=== PATIENT | female | born 1945 | race Caucasian/White ===

== ENCOUNTER → 2016-10-27 | Outpatient (CLI) | payer MEDICARE ==
[~2016-10-27] MED LIST: ADVAIR 100/501 DISK IH; ADVAIR 500/501 DISK IH; ADVAIR HFA120 INHALA IH; ADVIL200 M1 PO; ALEVE220 M2 PO; AMBIEN10 MG PO; AMLODIPINE BESYL5 MG PO; ASPIRIN EC325 MG PO; Advair HFA 115/21 IH; Ambien PO; Ascorbic Acid,Ester- PO; CARAFATE1 GM PO; CEFTIN500 MG PO; CELECOXIB100 MG PO; CIPRO500 MG PO; COUMADIN1 MG PO; CYANOCOBAL1000 MCG/2 IM; Cozaar PO; DUONEB 2.5-0.5 M3 ML AEROSOL; Ditropan PO; Dulcolax PO; ENABLEX15 MG PO; FENTANYL1 EAC1 TD; Feosol PO; Folvite PO; GABAPENTIN400 MG PO; HYDROCODON-ACE1 EAC7 PO; IRON325 M1 PO; LANOXIN125 MCG PO; LIDOCAINE700 MG TD; LOPRESSOR25 MG PO; Lanoxin,Digitek PO; Lasix PO; METHOCARBAMOL500 MG PO; METOPROLOL SUCC25 MG PO; Miralax, Glycolax PO; NEURONTIN300 MG; NEURONTIN300 MG PO; NITROSTAT0.4 MG SL; NORCO 10/3251 TABLET PO; Neurontin PO; OMEPRAZOLE40 M1 PO; OXYBUTYNIN CHLOR5 MG PO; OxyCONTIN PO; PAROXETINE HCL20 MG PO; PAXIL20 MG PO; PENNSAID112 GM TP; PREDNISONE10 MG PO; PROAIR HFA8.5 GM IH; Paxil PO; Protonix PO; SPIRIVA1 INHALATI IH; Senokot S,Pericolace PO; TRAMADOL HCL50 MG PO; TYLENOL REGULA325 MG PO; Theragran PO; Tums,OsCal PO; VITAMIN D250000 UNIT PO; VITAMIN D50000 UNI4 PO; Vicodin,Norco 5/325 PO; Vitamin B-12 IM; Vitamin D, Drisdol PO; WELCHOL625 MG PO; XARELTO10 MG PO; ZANAFLEX2 MG PO; ZOLPIDEM TARTRA10 MG PO; celeBREX PO; predniSONE PO
== END | disposition home or self-care (01) ==
LOC: CDC
DX: Z01.810 Encounter for preprocedural cardiovascular examination (principal)
CPT/HCPCS: 93000

== ENCOUNTER 2016-12-14 12:35 | Inpatient (IN) | payer OTHER ==
[~2016-12-14] VITALS: Ht 162.6 cm; Wt 62.0 kg
[~2016-12-14 12:35] MED LIST changes: +NEURONTIN100 MG PO; +SPIRIVA RESPIMAT4 G1 IH
[2016-12-14] MEDS ORDERED: VALACYCLOVIR1000 MG PO (13:17)
[2016-12-14] MEDS ORDERED: CYCLOBENZAPRINE5 MG PO (13:18)
[2016-12-14] MEDS ORDERED: SERTRALINE HCL50 MG PO (13:19)
[2016-12-14] MEDS ORDERED: BENZONATATE100 MG PO (13:19)
[2016-12-14] MEDS ORDERED: DITROPAN5 MG PO (13:19)
[2016-12-14 14:04] LABS: HEMATOCRIT 37.4 % (36.0-46.0); MCH 30.2 PG (29.0-34.0); MCHC 32.4 G/DL (30.0-36.0); MCV 93.3 FL (83-99); MEAN PLAT.VOLUME 9.4 uM^3 (9.5-12.4); PLATELET COUNT 114 K/uL (156-360); RBC DIS.WIDTH-CV 15.9 % (11.8-14.6); RBC DIS.WIDTH-SD 53.8 % (39-53); RED BLOOD COUNT 4.01 M/uL (3.80-5.20); WHITE BLOOD COUNT 5.1 K/uL (4.1-10.2)
[2016-12-14 14:13] LABS: CHLORIDE 110 mEq/L (99-109); POTASSIUM 3.6 mEq/L (3.7-5.4); SODIUM 139 mEq/L (136-147)
[2016-12-14 14:15] LABS: GLUCOSE 119 mg/dL (70-99)
[2016-12-14 14:17] LABS: ANION GAP 9 MEQ/L (2-14)
[2016-12-14 14:19] LABS: GFR ESTIMATE (CALCULATED) 43 mL/min/
[2016-12-14 14:20] LABS: UREA NITROGEN (BUN) 24 mg/dL (9-23)
[2016-12-14 14:26] LABS: TROP-I INTERPRETATION POSITIVE; TROPONIN-I 1.84 ng/mL (0.0-0.30)
[2016-12-14 14:34] LABS: ABS NEUTROPHIL COUNT 3.9; BAND NEUTROPHILS 0.9 % (0-8.0); BASOPHILS 1.7 %; EOSINOPHIL ABS CT 0; INSTRUMENT ABS NEUTROPHIL CT 3.1 K/uL; LYMPHOCYTES 18.6 % (15.0-45.0); MYELOCYTES 0.9 %; SEG.NEUTROPHILS 76.1 % (46.0-76.0); SMUDGE CELLS 16.8
[2016-12-14 16:50] LABS: PROTHROMBIN TIME 10.5 (9.2-11.2); PTT 30.2 (25-32)
[2016-12-14] MEDS ORDERED: ADVAIR HFA120 INHALA IH (16:57)
[2016-12-14] MEDS ORDERED: VICODIN 5-3001 EACH PO (16:58)
[2016-12-14] MEDS ORDERED: NEURONTIN600 MG PO (16:59)
[2016-12-14 17:00] VITALS: BP 119/71
[2016-12-14] MEDS ORDERED: LIDOCAINE HCL35 GM TP (17:01)
[2016-12-14] MEDS ORDERED: ERGOCALCIF50000 UNIT PO (17:01)
[2016-12-14 17:19] LABS: HDL CHOLESTEROL 22 MG/DL (Desirable>=50); LDL CHOLESTEROL 83 mg/dL (Desirable<100); NON-HDL CHOLESTEROL 122 mg/dL (Desirable<160); TOTAL CHOLESTEROL 144 mg/dL (Desirable<200); TRIGLYCERIDES 195 MG/DL (Normal: <150)
[2016-12-14 19:20] VITALS: BP 106/60
[2016-12-15 00:20] VITALS: BP 116/58
[2016-12-15 01:32] LABS: TROP-I INTERPRETATION POSITIVE; TROPONIN-I 2.37 ng/mL (0.0-0.30)
[2016-12-15 04:30] VITALS: BP 102/64
[2016-12-15 06:23] LABS: HEMATOCRIT 34.6 % (36.0-46.0); MCH 30.3 PG (29.0-34.0); MCHC 31.5 G/DL (30.0-36.0); MCV 96.1 FL (83-99); MEAN PLAT.VOLUME 9.9 uM^3 (9.5-12.4); PLATELET COUNT 108 K/uL (156-360); RBC DIS.WIDTH-CV 16.1 % (11.8-14.6); WHITE BLOOD COUNT 4.6 K/uL (4.1-10.2)
[2016-12-15 06:56] LABS: TROP-I INTERPRETATION POSITIVE; TROPONIN-I 2.18 ng/mL (0.0-0.30)
[2016-12-15 07:01] LABS: Estimated Average Glucose 103 mg/dL (70-123); HEMOGLOBIN A1c (GLYCOHEMOGLOB) 5.2 % HGB (Below 5.7)
[2016-12-15 07:20] VITALS: BP 118/59
[2016-12-15 12:02] VITALS: BP 116/66
[2016-12-15 16:07] VITALS: BP 97/52
[2016-12-15 19:30] VITALS: BP 104/60
[2016-12-16 00:12] VITALS: BP 113/56
[2016-12-16 02:44] LABS: HEMATOCRIT 36.7 % (36.0-46.0); MCH 30.6 PG (29.0-34.0); MCHC 32.2 G/DL (30.0-36.0); MCV 95.1 FL (83-99); MEAN PLAT.VOLUME 9.7 uM^3 (9.5-12.4); PLATELET COUNT 123 K/uL (156-360); RBC DIS.WIDTH-CV 16.2 % (11.8-14.6); RBC DIS.WIDTH-SD 53.7 % (39-53); RED BLOOD COUNT 3.86 M/uL (3.80-5.20); WHITE BLOOD COUNT 4.7 K/uL (4.1-10.2)
[2016-12-16 03:16] LABS: CHLORIDE 113 mEq/L (99-109); SODIUM 142 mEq/L (136-147)
[2016-12-16 03:17] LABS: GLUCOSE 92 mg/dL (70-99)
[2016-12-16 03:19] LABS: ANION GAP 7 MEQ/L (2-14)
[2016-12-16 03:21] LABS: GFR ESTIMATE (CALCULATED) 36 mL/min/; POTASSIUM 4.4 mEq/L (3.7-5.4)
[2016-12-16 03:22] LABS: UREA NITROGEN (BUN) 25 mg/dL (9-23)
[2016-12-16 03:40] VITALS: BP 109/74
[2016-12-16 08:00] VITALS: BP 106/60
[2016-12-16 12:05] VITALS: BP 94/52
[2016-12-16 16:47] VITALS: BP 98/50
[2016-12-16 20:30] VITALS: BP 137/67
[2016-12-17 01:15] VITALS: BP 119/65
[2016-12-17 04:52] LABS: EOSINOPHIL (%) 1.7 % (0-5); EOSINOPHIL COUNT 0.1 K/uL (0-0.3); IMMATURE GRANULOCYTE (%) 0.7 % (0.0-0.7); INSTRUMENT ABS NEUTROPHIL CT 2.3 K/uL; LYMPHOCYTE COUNT 1.5 K/uL (1.0-2.8); MCH 30.6 PG (29.0-34.0); MCHC 31.5 G/DL (30.0-36.0); MCV 97.1 FL (83-99); MEAN PLAT.VOLUME 9.8 uM^3 (9.5-12.4); MONOCYTE (%) 6.9 % (3-12); MONOCYTE COUNT 0.3 K/uL (0-0.8); NEUTROPHIL (%) 55.6 % (45-76); NEUTROPHIL COUNT 2.3 K/uL (1.8-6.4); PLATELET COUNT 115 K/uL (156-360); RBC DIS.WIDTH-CV 16.3 % (11.8-14.6); RBC DIS.WIDTH-SD 55.8 % (39-53); WHITE BLOOD COUNT 4.2 K/uL (4.1-10.2)
[2016-12-17 05:02] LABS: CHLORIDE 115 mEq/L (99-109); POTASSIUM 4.2 mEq/L (3.7-5.4); SODIUM 142 mEq/L (136-147)
[2016-12-17 05:04] LABS: GLUCOSE 92 mg/dL (70-99)
[2016-12-17 05:05] VITALS: BP 116/63
[2016-12-17 05:05] LABS: ANION GAP 6 MEQ/L (2-14)
[2016-12-17 05:06] LABS: TOTAL BILIRUBIN 0.3 mg/dL (0.0-1.0)
[2016-12-17 05:08] LABS: ALKALINE PHOSPHATASE 78 IU/L (3-129); GFR ESTIMATE (CALCULATED) 39 mL/min/
[2016-12-17 05:09] LABS: UREA NITROGEN (BUN) 26 mg/dL (9-23)
[2016-12-17 14:54] VITALS: BP 170/70
[2016-12-17 18:00] VITALS: BP 115/55
[2016-12-17 20:00] VITALS: BP 158/72
== END 2016-12-17 21:50 | disposition short-term general hospital (02) | DRG 281 ==
LOC: EME 12:35 → EDOF 15:57 → 4EAST 15:57
PROVIDERS: Emergency Medicine; Internal Medicine; Internal Medicine Cardiovascular Disease; Nurse Practitioner Adult Health; Physician Assistant
DX: I21.4 Non-ST elevation (NSTEMI) myocardial infarction (principal); J44.9 Chronic obstructive pulmonary disease, unspecified; I27.2 Other secondary pulmonary hypertension; I25.10 Atherosclerotic heart disease of native coronary artery without angina pectoris; I65.29 Occlusion and stenosis of unspecified carotid artery; I50.30 Unspecified diastolic (congestive) heart failure; I10 Essential (primary) hypertension; S00.03XA Contusion of scalp, initial encounter; G89.29 Other chronic pain; F17.210 Nicotine dependence, cigarettes, uncomplicated; S80.211A Abrasion, right knee, initial encounter; R07.89 Other chest pain; I73.9 Peripheral vascular disease, unspecified; F32.9 Major depressive disorder, single episode, unspecified; D69.6 Thrombocytopenia, unspecified; I95.9 Hypotension, unspecified; D64.9 Anemia, unspecified; I07.1 Rheumatic tricuspid insufficiency; K21.9 Gastro-esophageal reflux disease without esophagitis; B00.89 Other herpesviral infection; Z87.442 Personal history of urinary calculi; I25.2 Old myocardial infarction; Z86.73 Personal history of transient ischemic attack (TIA), and cerebral infarction without residual deficits; Z90.49 Acquired absence of other specified parts of digestive tract; Z96.643 Presence of artificial hip joint, bilateral; Z96.653 Presence of artificial knee joint, bilateral
CPT/HCPCS: 70450; 71020; 71101; 80048; 80053; 80061; 82565; 83036; 83880; 84484; 84520; 85025; 85027; 85610; 85730; 93005; 93306; 94640; 94640 76; 94799; 99202; 99281; 99285; C1760; C1769; C1887; C1894; J1644; J2250; J2270; J3010; J7030; J7040

== ENCOUNTER 2017-01-24 11:55 | Emergency (ER) | payer OTHER ==
[~2017-01-24] VITALS: Ht 152.4 cm; Wt 54.2 kg
[~2017-01-24 11:55] MED LIST changes: +BENZONATATE100 MG PO; +CYCLOBENZAPRINE5 MG PO; +DITROPAN5 MG PO; +ERGOCALCIF50000 UNIT PO; +LIDOCAINE HCL35 GM TP; +NEURONTIN600 MG PO; +SERTRALINE HCL50 MG PO; +VALACYCLOVIR1000 MG PO; +VICODIN 5-3001 EACH PO
[2017-01-24] MEDS ORDERED: ATORVASTATIN CA40 MG PO (12:35)
[2017-01-24] MEDS ORDERED: AMOX TR-K CLV1 EAC3 PO (12:35)
[2017-01-24] MEDS ORDERED: CLOPIDOGREL75 MG PO (12:35)
[2017-01-24] MEDS ORDERED: LO-DOSE ASPIRIN81 M2 PO (12:36)
[2017-01-24] MEDS ORDERED: METOPROLOL SUCC25 MG PO (12:36)
[2017-01-24 12:42] LABS: EOSINOPHIL (%) 0.9 % (0-5); HEMATOCRIT 33.9 % (36.0-46.0); IMMATURE GRANULOCYTE (%) 0.3 % (0.0-0.7); INSTRUMENT ABS NEUTROPHIL CT 2.1 K/uL; LYMPHOCYTE COUNT 0.8 K/uL (1.0-2.8); MCH 31.6 PG (29.0-34.0); MCHC 33.6 G/DL (30.0-36.0); MCV 93.9 FL (83-99); MEAN PLAT.VOLUME 9.3 uM^3 (9.5-12.4); MONOCYTE (%) 9.9 % (3-12); MONOCYTE COUNT 0.3 K/uL (0-0.8); NEUTROPHIL (%) 63.8 % (45-76); NEUTROPHIL COUNT 2.1 K/uL (1.8-6.4); PLATELET COUNT 113 K/uL (156-360); RBC DIS.WIDTH-CV 14.4 % (11.8-14.6); RED BLOOD COUNT 3.61 M/uL (3.80-5.20); WHITE BLOOD COUNT 3.2 K/uL (4.1-10.2)
[2017-01-24 12:50] LABS: CHLORIDE 107 mEq/L (99-109); POTASSIUM 3.2 mEq/L (3.7-5.4); SODIUM 140 mEq/L (136-147)
[2017-01-24 12:52] LABS: GLUCOSE 118 mg/dL (70-99)
[2017-01-24 12:53] LABS: ANION GAP 9 MEQ/L (2-14)
[2017-01-24 12:54] LABS: TOTAL BILIRUBIN 0.7 mg/dL (0.0-1.0)
[2017-01-24 12:55] LABS: ALKALINE PHOSPHATASE 110 IU/L (3-129)
[2017-01-24 12:56] LABS: GFR ESTIMATE (CALCULATED) > 59 mL/min/
[2017-01-24 12:57] LABS: UREA NITROGEN (BUN) 13 mg/dL (9-23)
[2017-01-24 12:59] LABS: LIPASE 124 U/L (1.0-51.0)
[2017-01-24 13:08] LABS: TROP-I INTERPRETATION NEGATIVE; TROPONIN-I 0.01 ng/mL (0.0-0.30)
[2017-01-24] MEDS ORDERED: ZOFRAN ODT4 MG PO (18:17)
[2017-01-24 18:42] LABS: ADD MIUA? YES; BILIRUBIN NEGATIVE; BLOOD NEGATIVE; COLOR YELLOW ((YELLOW)); GLUCOSE (STRIP) NEGATIVE; KETONES NEGATIVE; LEUKOCYTES NEGATIVE; NITRITE NEGATIVE; PROTEIN (STRIP) 100; SPECIFIC GRAVITY 1.021 (1.000-1.030); UROBILINOGEN 0.2 MG/DL (0.2-1.0)
[2017-01-24 19:05] LABS: BACTERIA NONE SEEN /HPF; EPITHELIAL CELLS RARE /HPF; MUCUS TRACE /LPF; RED BLOOD CELLS 0-5 /HPF (0-5); UCUL ADDED? NO; WHITE BLOOD CELLS 0-5 /HPF (0-5)
[2017-01-24] MEDS ORDERED: VICODIN 5-3001 EACH PO (19:39)
[2017-01-24 19:56] VITALS: BP 150/88
== END 2017-01-24 21:18 | disposition home or self-care (01) ==
LOC: EME 11:55
PROVIDERS: Emergency Medicine
DX: R10.9 Unspecified abdominal pain (principal); G89.29 Other chronic pain; J44.9 Chronic obstructive pulmonary disease, unspecified; I10 Essential (primary) hypertension; Z87.442 Personal history of urinary calculi; I25.2 Old myocardial infarction; Z95.5 Presence of coronary angioplasty implant and graft; F17.200 Nicotine dependence, unspecified, uncomplicated
CPT/HCPCS: 74176; 80053; 81003; 83690; 84484; 85025; 93005; 99281; 99285; J2270; J2405; J7030

== ENCOUNTER 2017-01-26 13:12 | Inpatient (IN) | payer OTHER ==
[~2017-01-26] VITALS: Ht 162.6 cm; Wt 51.9 kg
[~2017-01-26 13:12] MED LIST changes: +AMOX TR-K CLV1 EAC3 PO; +ATORVASTATIN CA40 MG PO; +CLOPIDOGREL75 MG PO; +LO-DOSE ASPIRIN81 M2 PO; +ZOFRAN ODT4 MG PO
[2017-01-26 15:05] LABS: HEMATOCRIT 36.5 % (36.0-46.0); MCH 31.9 PG (29.0-34.0); MCHC 34.5 G/DL (30.0-36.0); MCV 92.4 FL (83-99); MEAN PLAT.VOLUME 9.6 uM^3 (9.5-12.4); PLATELET COUNT 104 K/uL (156-360); RBC DIS.WIDTH-CV 14.3 % (11.8-14.6); RBC DIS.WIDTH-SD 48.1 % (39-53); RED BLOOD COUNT 3.95 M/uL (3.80-5.20); WHITE BLOOD COUNT 3.9 K/uL (4.1-10.2)
[2017-01-26 15:13] LABS: CHLORIDE 105 mEq/L (99-109); SODIUM 141 mEq/L (136-147)
[2017-01-26 15:16] LABS: ANION GAP 13 MEQ/L (2-14); GLUCOSE 82 mg/dL (70-99)
[2017-01-26 15:17] LABS: TOTAL BILIRUBIN 0.8 mg/dL (0.0-1.0)
[2017-01-26 15:18] LABS: SERUM ETHYL ALCOHOL < 10 mg/dL
[2017-01-26 15:19] LABS: ALKALINE PHOSPHATASE 115 IU/L (3-129); GFR ESTIMATE (CALCULATED) > 59 mL/min/
[2017-01-26 15:20] LABS: UREA NITROGEN (BUN) 13 mg/dL (9-23)
[2017-01-26 15:22] LABS: LIPASE 85 U/L (1.0-51.0)
[2017-01-26 15:26] LABS: TROP-I INTERPRETATION NEGATIVE; TROPONIN-I < 0.01 ng/mL (0.0-0.30)
[2017-01-26 15:45] LABS: ADD MIUA? YES; BILIRUBIN NEGATIVE; BLOOD SMALL; COLOR AMBER ((YELLOW)); GLUCOSE (STRIP) NEGATIVE; KETONES NEGATIVE; LEUKOCYTES SMALL; NITRITE NEGATIVE; PROTEIN (STRIP) 100; SPECIFIC GRAVITY 1.015 (1.000-1.030)
[2017-01-26 15:50] LABS: ADD MEDTOX COMMENT Y; AMPHETAMINE NEGATIVE (500 ng/mL); BARBITURATES NEGATIVE (200 ng/mL); BENZODIAZEPINES NEGATIVE (150 ng/mL); COCAINE NEGATIVE (150 ng/mL); INTERNAL CONTROLS VALID? YES; METHADONE NEGATIVE (200 ng/mL); METHAMPHETAMINE NEGATIVE (500 ng/mL); OPIATES (MORPHINE) PRESUMPTIVE POSITIVE (100 ng/mL); OXYCODONE NEGATIVE (100 ng/mL); PHENCYCLIDINE NEGATIVE (25 ng/mL); PROPOXYPHENE NEGATIVE (300 ng/mL); THC CANNABINOIDS NEGATIVE (50 ng/mL); TRICYCLIC ANTIDEPRESSANTS NEGATIVE (300 ng/mL)
[2017-01-26 15:53] LABS: BACTERIA RARE /HPF; EPITHELIAL CELLS NONE SEEN /HPF; HYALINE CASTS 0-5 /LPF; MUCUS TRACE /LPF; RED BLOOD CELLS 15-20 /HPF (0-5); UCUL ADDED? YES; WHITE BLOOD CELLS TNTC /HPF (0-5)
[2017-01-26] MEDS ORDERED: FLEXERIL5 MG PO (17:52)
[2017-01-26] MEDS ORDERED: HYDROCODON-ACE1 EAC7 PO (17:53)
[2017-01-26] MEDS ORDERED: DUONEB 2.5-0.5 M3 ML AEROSOL (17:54)
[2017-01-26 21:06] LABS: BASE EXCESS -1.3 mEq/L (-3 to +3); BICARBONATE 23.7 mEq/L (22-26); CARBOXY HGB 2.1 % (0-5); METHEMOGLOBIN 1.1 % (0-1.5); PO2 47 mm Hg (80-100); pH 7.38 (7.35-7.45)
[2017-01-26 21:07] LABS: COMMENTS - BLOOD GASES A+C+; FI02 21 %; PCO2 40 mm Hg (35-45); SITE RR; TOTAL RESP RATE 26 resp/min
[2017-01-26 23:25] VITALS: BP 179/106
[2017-01-27] VITALS (11 sets, daily range): BP systolic 142–228; BP diastolic 66–100
[2017-01-27 06:08] LABS: TROP-I INTERPRETATION NEGATIVE; TROPONIN-I 0.03 ng/mL (0.0-0.30)
[2017-01-27 06:22] LABS: HEMATOCRIT 29.4 % (36.0-46.0); MCH 32.3 PG (29.0-34.0); MCV 94.8 FL (83-99); MEAN PLAT.VOLUME 9.9 uM^3 (9.5-12.4); PLATELET COUNT 86 K/uL (156-360); RBC DIS.WIDTH-CV 14.6 % (11.8-14.6); RBC DIS.WIDTH-SD 50.2 % (39-53); WHITE BLOOD COUNT 3.5 K/uL (4.1-10.2)
[2017-01-27 07:05] LABS: ANION GAP 11 MEQ/L (2-14); CHLORIDE 105 MEQ/L (99-109); POTASSIUM 2.8 MEQ/L (3.7-5.4); SAMPLE HEMOLYSIS CHECK 0; SAMPLE ICTERIC CHECK 0; SAMPLE LIPEMIA CHECK 0; SODIUM 137 MEQ/L (136-147)
[2017-01-27 07:10] LABS: GFR ESTIMATE (CALCULATED) > 59 mL/min/; UREA NITROGEN (BUN) 11 mg/dL (9-23)
[2017-01-27 07:11] LABS: GLUCOSE 354 mg/dL (70-99)
[2017-01-27 07:36] LABS: POINT-OF-CARE METER ID UU13113781
[2017-01-28 04:55] VITALS: BP 152/71
[2017-01-28 05:53] LABS: EOSINOPHIL (%) 2.3 % (0-5); EOSINOPHIL COUNT 0.1 K/uL (0-0.3); HEMATOCRIT 27.4 % (36.0-46.0); IMMATURE GRANULOCYTE (%) 0.3 % (0.0-0.7); INSTRUMENT ABS NEUTROPHIL CT 2.1 K/uL; LYMPHOCYTE COUNT 0.9 K/uL (1.0-2.8); MCH 32.8 PG (29.0-34.0); MCHC 34.3 G/DL (30.0-36.0); MCV 95.5 FL (83-99); MEAN PLAT.VOLUME 9.6 uM^3 (9.5-12.4); MONOCYTE (%) 9.8 % (3-12); MONOCYTE COUNT 0.3 K/uL (0-0.8); NEUTROPHIL (%) 61.6 % (45-76); NEUTROPHIL COUNT 2.1 K/uL (1.8-6.4); PLATELET COUNT 80 K/uL (156-360); RBC DIS.WIDTH-CV 14.7 % (11.8-14.6); RBC DIS.WIDTH-SD 51.4 % (39-53); RED BLOOD COUNT 2.87 M/uL (3.80-5.20); WHITE BLOOD COUNT 3.5 K/uL (4.1-10.2)
[2017-01-28 06:29] LABS: ALKALINE PHOSPHATASE 76 IU/L (3-129); ANION GAP 11 MEQ/L (2-14); CHLORIDE 105 MEQ/L (99-109); GFR ESTIMATE (CALCULATED) > 59 mL/min/; GLUCOSE 56 mg/dL (70-99); POTASSIUM 2.8 MEQ/L (3.7-5.4); SAMPLE HEMOLYSIS CHECK 0; SAMPLE ICTERIC CHECK 0; SAMPLE LIPEMIA CHECK 0; SODIUM 137 MEQ/L (136-147); TOTAL BILIRUBIN 0.5 MG/DL (0.0-1.0); UREA NITROGEN (BUN) 8 mg/dL (9-23)
[2017-01-28 07:05] VITALS: BP 184/81
[2017-01-28 08:47] LABS: POINT-OF-CARE USER ID NUTSLF44
[2017-01-28 12:01] VITALS: BP 182/78
[2017-01-28 12:32] LABS: AMPHETAMINES QUANT VALUE 0 NG/ML; BARBITUATES QUANT VALUE 0 NG/ML; BENZODIAZEPINES QUANT VALUE 0 NG/ML; BENZODIAZEPINES, URINE SCREEN Negative (200 ng/mL); MARIJUANA QUANT VALUE 0 NG/ML; PHENCYCLIDINE QUANT VALUE 0 NG/ML
[2017-01-28 13:05] LABS: POINT-OF-CARE METER ID UU13113781; POINT-OF-CARE USER ID NUTSLF44
[2017-01-28 14:25] LABS: HEMATOCRIT 31.9 % (36.0-46.0); IMM.RETIC FRACTION 11.4 % (3-19); MCH 31.7 PG (29.0-34.0); MCHC 33.5 G/DL (30.0-36.0); MCV 94.4 FL (83-99); PLATELET COUNT 93 K/uL (156-360); RBC DIS.WIDTH-CV 14.6 % (11.8-14.6); RBC DIS.WIDTH-SD 49.5 % (39-53); RED BLOOD COUNT 3.38 M/uL (3.80-5.20); RETIC HGB EQUIVALENT 33.9 (28-36); RETICULOCYTE COUNT 2.9 % (0.5-1.8); WHITE BLOOD COUNT 5.4 K/uL (4.1-10.2)
[2017-01-28 14:39] LABS: ABS NEUTROPHIL COUNT 4.9; ANISOCYTOSIS 1+; BASOPHILS 0.9 %; EOSINOPHIL ABS CT 0; EOSINOPHILS 0.9 % (0-5.0); INSTRUMENT ABS NEUTROPHIL CT 4.4 K/uL; LYMPHOCYTES 4.4 % (15.0-45.0); PLAT.SUFFICIENCY DECREASED; SEG.NEUTROPHILS 90.3 % (46.0-76.0)
[2017-01-28 14:40] LABS: TROP-I INTERPRETATION NEGATIVE; TROPONIN-I 0.05 ng/mL (0.0-0.30)
[2017-01-28 14:50] LABS: ANION GAP 12 MEQ/L (2-14); CHLORIDE 103 MEQ/L (99-109); GFR ESTIMATE (CALCULATED) > 59 mL/min/; IRON 32 MCG/DL (35-150); POTASSIUM 3.1 MEQ/L (3.7-5.4); SAMPLE HEMOLYSIS CHECK 0; SAMPLE ICTERIC CHECK 0; SAMPLE LIPEMIA CHECK 0; SODIUM 135 MEQ/L (136-147); UREA NITROGEN (BUN) 7 mg/dL (9-23)
[2017-01-28 14:53] LABS: GLUCOSE 90 mg/dL (70-99)
[2017-01-28 15:53] LABS: FERRITIN 247 NG/ML (10-291)
[2017-01-28 16:01] LABS: POINT-OF-CARE METER ID UU13113698
[2017-01-28 16:30] VITALS: BP 170/58
[2017-01-28 20:04] VITALS: BP 171/74
[2017-01-28 23:30] VITALS: BP 190/107
[2017-01-29 04:19] VITALS: BP 169/78
[2017-01-29 06:40] LABS: ANION GAP 9 MEQ/L (2-14); CHLORIDE 103 MEQ/L (99-109); GFR ESTIMATE (CALCULATED) > 59 mL/min/; GLUCOSE 90 mg/dL (70-99); POTASSIUM 2.9 MEQ/L (3.7-5.4); SAMPLE HEMOLYSIS CHECK 0; SAMPLE ICTERIC CHECK 0; SAMPLE LIPEMIA CHECK 0; SODIUM 135 MEQ/L (136-147); UREA NITROGEN (BUN) 7 mg/dL (9-23)
[2017-01-29 07:04] VITALS: BP 173/73
[2017-01-29 08:33] LABS: POINT-OF-CARE METER ID UU13113698; POINT-OF-CARE USER ID NUTSLF44
[2017-01-29 11:00] VITALS: BP 196/81
[2017-01-29 13:44] LABS: TREPONEMA ANTIBODY NEGATIVE (NEGATIVE)
[2017-01-29 13:44] LABS: LYME DISEASE SEROLOGY SCREEN NEGATIVE (NEGATIVE)
[2017-01-29 15:00] VITALS: BP 176/76
[2017-01-29 17:00] LABS: POINT-OF-CARE METER ID UU13113698; POINT-OF-CARE USER ID NUTSLF44
[2017-01-29 19:47] VITALS: BP 197/82
[2017-01-29 23:21] VITALS: BP 134/55
[2017-01-30 03:59] VITALS: BP 180/81
[2017-01-30 06:23] LABS: EOSINOPHIL (%) 1.2 % (0-5); EOSINOPHIL COUNT 0.1 K/uL (0-0.3); HEMATOCRIT 27.9 % (36.0-46.0); IMMATURE GRANULOCYTE (%) 0.4 % (0.0-0.7); INSTRUMENT ABS NEUTROPHIL CT 4.6 K/uL; LYMPHOCYTE COUNT 0.5 K/uL (1.0-2.8); MCH 32.6 PG (29.0-34.0); MCHC 34.1 G/DL (30.0-36.0); MCV 95.9 FL (83-99); MEAN PLAT.VOLUME 10.6 uM^3 (9.5-12.4); MONOCYTE (%) 8.3 % (3-12); MONOCYTE COUNT 0.5 K/uL (0-0.8); NEUTROPHIL (%) 81.4 % (45-76); NEUTROPHIL COUNT 4.6 K/uL (1.8-6.4); PLATELET COUNT 69 K/uL (156-360); RBC DIS.WIDTH-CV 14.4 % (11.8-14.6); RBC DIS.WIDTH-SD 50.2 % (39-53); RED BLOOD COUNT 2.91 M/uL (3.80-5.20); WHITE BLOOD COUNT 5.7 K/uL (4.1-10.2)
[2017-01-30 06:52] LABS: ALKALINE PHOSPHATASE 64 IU/L (3-129); ANION GAP 8 MEQ/L (2-14); CHLORIDE 106 MEQ/L (99-109); GFR ESTIMATE (CALCULATED) > 59 mL/min/; GLUCOSE 107 mg/dL (70-99); POTASSIUM 2.9 MEQ/L (3.7-5.4); SAMPLE HEMOLYSIS CHECK 0; SAMPLE ICTERIC CHECK 0; SAMPLE LIPEMIA CHECK 0; SODIUM 138 MEQ/L (136-147); TOTAL BILIRUBIN 0.5 MG/DL (0.0-1.0); UREA NITROGEN (BUN) 9 mg/dL (9-23)
[2017-01-30 08:53] VITALS: BP 151/70
[2017-01-30 11:54] VITALS: BP 161/72
[2017-01-30 17:10] VITALS: BP 127/59
[2017-01-30 19:45] VITALS: BP 123/58
[2017-01-30 23:53] LABS: BASE EXCESS -0.5 mEq/L (-3 to +3); BICARBONATE 25.4 mEq/L (22-26); CARBOXY HGB 2.2 % (0-5); METHEMOGLOBIN 1.7 % (0-1.5); PCO2 47 mm Hg (35-45); PO2 58 mm Hg (80-100); SITE RR; pH 7.34 (7.35-7.45)
[2017-01-30 23:54] LABS: COMMENTS - BLOOD GASES C+; DEVICE NRBM&15LNCH; TOTAL RESP RATE 20 resp/min
[2017-01-30 23:56] VITALS: BP 152/52
[2017-01-31] VITALS (21 sets, daily range): BP systolic 105–209; BP diastolic 46–92
[2017-01-31 00:49] LABS: EOSINOPHIL (%) 3.5 % (0-5); EOSINOPHIL COUNT 0.1 K/uL (0-0.3); IMMATURE GRANULOCYTE (%) 0.3 % (0.0-0.7); INSTRUMENT ABS NEUTROPHIL CT 2.6 K/uL; LYMPHOCYTE COUNT 0.5 K/uL (1.0-2.8); MCH 32.1 PG (29.0-34.0); MCHC 33.1 G/DL (30.0-36.0); MEAN PLAT.VOLUME 10.8 uM^3 (9.5-12.4); MONOCYTE (%) 6.6 % (3-12); MONOCYTE COUNT 0.2 K/uL (0-0.8); NEUTROPHIL (%) 74.3 % (45-76); NEUTROPHIL COUNT 2.6 K/uL (1.8-6.4); PLATELET COUNT 63 K/uL (156-360); RBC DIS.WIDTH-CV 14.3 % (11.8-14.6); RBC DIS.WIDTH-SD 50.7 % (39-53); RED BLOOD COUNT 2.68 M/uL (3.80-5.20); WHITE BLOOD COUNT 3.5 K/uL (4.1-10.2)
[2017-01-31 00:53] LABS: CHLORIDE 111 mEq/L (99-109); POTASSIUM 3.1 mEq/L (3.7-5.4); SODIUM 139 mEq/L (136-147)
[2017-01-31 00:54] LABS: ANION GAP 6 MEQ/L (2-14); GLUCOSE 108 mg/dL (70-99)
[2017-01-31 00:56] LABS: GFR ESTIMATE (CALCULATED) > 59 mL/min/; TOTAL BILIRUBIN 0.4 mg/dL (0.0-1.0)
[2017-01-31 00:57] LABS: ALKALINE PHOSPHATASE 71 IU/L (3-129); UREA NITROGEN (BUN) 10 mg/dL (9-23)
[2017-01-31 01:26] LABS: BASE EXCESS -0.7 mEq/L (-3 to +3); BICARBONATE 24.2 mEq/L (22-26); METHEMOGLOBIN 1.6 % (0-1.5); PO2 67 mm Hg (80-100); pH 7.39 (7.35-7.45)
[2017-01-31 01:27] LABS: COMMENTS - BLOOD GASES C+; DEVICE PB960; FI02 100 %; MODE SPON; PCO2 40 mm Hg (35-45); PEEP 5 CM/H20; PRES. SUPPORT 10 CM/H2O; SITE RR; TOTAL RESP RATE 28 resp/min
[2017-01-31 01:33] LABS: ADD MIUA? YES; BILIRUBIN NEGATIVE; BLOOD NEGATIVE; COLOR YELLOW ((YELLOW)); GLUCOSE (STRIP) NEGATIVE; KETONES NEGATIVE; LEUKOCYTES NEGATIVE; NITRITE NEGATIVE; PROTEIN (STRIP) 100; SPECIFIC GRAVITY 1.015 (1.000-1.030); UROBILINOGEN 0.2 MG/DL (0.2-1.0)
[2017-01-31 01:38] LABS: METH RESISTANT S AUREUS PCR NEGATIVE (NEGATIVE)
[2017-01-31 01:44] LABS: PROBE CHECK PASS; SPECIMEN PROCESSING CONTROL PASS
[2017-01-31 01:49] LABS: BACTERIA RARE /HPF; EPITHELIAL CELLS RARE /HPF; HYALINE CASTS 0-5 /LPF; MUCUS TRACE /LPF; RED BLOOD CELLS 0-5 /HPF (0-5); UCUL ADDED? NO
[2017-01-31 05:44] LABS: POINT-OF-CARE METER ID UU13113803
[2017-01-31 08:20] LABS: ANION GAP 9 MEQ/L (2-14); CHLORIDE 107 MEQ/L (99-109); GFR ESTIMATE (CALCULATED) > 59 mL/min/; GLUCOSE 122 mg/dL (70-99); MAGNESIUM 1.8 mg/dl (1.3-2.7); SAMPLE HEMOLYSIS CHECK 0; SAMPLE ICTERIC CHECK 0; SAMPLE LIPEMIA CHECK 0; SODIUM 138 MEQ/L (136-147); UREA NITROGEN (BUN) 11 mg/dL (9-23)
[2017-01-31 08:21] LABS: POTASSIUM 4.1 MEQ/L (3.7-5.4)
[2017-01-31 10:34] LABS: HEMATOCRIT 28.9 % (36.0-46.0); MCH 31.5 PG (29.0-34.0); MCHC 32.5 G/DL (30.0-36.0); MEAN PLAT.VOLUME 11.2 uM^3 (9.5-12.4); PLATELET COUNT 77 K/uL (156-360); RBC DIS.WIDTH-CV 14.2 % (11.8-14.6); RBC DIS.WIDTH-SD 50.6 % (39-53); RED BLOOD COUNT 2.98 M/uL (3.80-5.20); WHITE BLOOD COUNT 4.6 K/uL (4.1-10.2)
[2017-01-31 12:25] LABS: POINT-OF-CARE METER ID UU13113803
[2017-01-31 15:57] LABS: BASE EXCESS -0.8 mEq/L (-3 to +3); BICARBONATE 22.9 mEq/L (22-26); CARBOXY HGB 1.7 % (0-5); COMMENTS - BLOOD GASES AC+; CONTINUOUS POS AIRWAY PRESSURE 8 cm H2O; DEVICE 980 VENTILATOR; FI02 90 %; METHEMOGLOBIN 1.5 % (0-1.5); MODE NIPPV; PCO2 33 mm Hg (35-45); PO2 188 mm Hg (80-100); PRES. SUPPORT 12 CM/H2O; SITE RR; TOTAL RESP RATE 25 resp/min; pH 7.45 (7.35-7.45)
[2017-01-31 18:29] LABS: POINT-OF-CARE METER ID UU13113803
[2017-01-31 21:38] LABS: BASE EXCESS -1.2 mEq/L (-3 to +3); BICARBONATE 24.3 mEq/L (22-26); CARBOXY HGB 1.3 % (0-5); COMMENTS - BLOOD GASES C+; DEVICE PB980; FI02 100 %; MECHANICAL RATE 18 resp/min; METHEMOGLOBIN 1.7 % (0-1.5); MODE AC; PCO2 43 mm Hg (35-45); PEEP 10 CM/H20; PO2 200 mm Hg (80-100); SITE LR; TIDAL VOLUME 400 ML; TOTAL RESP RATE 18 resp/min; pH 7.36 (7.35-7.45)
[2017-02-01] VITALS (17 sets, daily range): BP systolic 103–181; BP diastolic 52–85
[2017-02-01 05:43] LABS: CHLORIDE 105 mEq/L (99-109); SODIUM 138 mEq/L (136-147)
[2017-02-01 05:45] LABS: GLUCOSE 148 mg/dL (70-99)
[2017-02-01 05:47] LABS: ANION GAP 11 MEQ/L (2-14); POTASSIUM 3.1 mEq/L (3.7-5.4)
[2017-02-01 05:49] LABS: ALKALINE PHOSPHATASE 62 IU/L (3-129); EOSINOPHIL (%) 0 % (0-5); GFR ESTIMATE (CALCULATED) > 59 mL/min/; HEMATOCRIT 25.8 % (36.0-46.0); IMMATURE GRANULOCYTE (%) 1.5 % (0.0-0.7); INSTRUMENT ABS NEUTROPHIL CT 1.1 K/uL; LYMPHOCYTE COUNT 0.1 K/uL (1.0-2.8); MCH 31.7 PG (29.0-34.0); MCHC 33.3 G/DL (30.0-36.0); MCV 95.2 FL (83-99); MEAN PLAT.VOLUME 11.5 uM^3 (9.5-12.4); MONOCYTE (%) 5.2 % (3-12); MONOCYTE COUNT 0.1 K/uL (0-0.8); NEUTROPHIL (%) 82.9 % (45-76); NEUTROPHIL COUNT 1.1 K/uL (1.8-6.4); PLATELET COUNT 57 K/uL (156-360); RBC DIS.WIDTH-SD 48.2 % (39-53); RED BLOOD COUNT 2.71 M/uL (3.80-5.20); TOTAL BILIRUBIN 0.3 mg/dL (0.0-1.0)
[2017-02-01 05:50] LABS: UREA NITROGEN (BUN) 14 mg/dL (9-23); WHITE BLOOD COUNT 1.4 K/uL (4.1-10.2)
[2017-02-01 17:47] LABS: POINT-OF-CARE METER ID UU14174217
[2017-02-02] VITALS (23 sets, daily range): BP systolic 113–200; BP diastolic 51–102
[2017-02-02 00:38] LABS: POINT-OF-CARE METER ID UU13113748
[2017-02-02 05:55] LABS: POINT-OF-CARE METER ID UU14174217
[2017-02-02 12:45] LABS: EOSINOPHIL (%) 0 % (0-5); HEMATOCRIT 24.4 % (36.0-46.0); IMMATURE GRANULOCYTE (%) 2.4 % (0.0-0.7); IMMATURE GRANULOCYTE COUNT 0.1 K/uL; INSTRUMENT ABS NEUTROPHIL CT 1.6 K/uL; LYMPHOCYTE COUNT 0.2 K/uL (1.0-2.8); MCH 32.7 PG (29.0-34.0); MCHC 32.8 G/DL (30.0-36.0); MEAN PLAT.VOLUME 10.6 uM^3 (9.5-12.4); MONOCYTE (%) 9.7 % (3-12); MONOCYTE COUNT 0.2 K/uL (0-0.8); NEUTROPHIL (%) 79.2 % (45-76); NEUTROPHIL COUNT 1.6 K/uL (1.8-6.4); RBC DIS.WIDTH-SD 51.4 % (39-53); RED BLOOD COUNT 2.45 M/uL (3.80-5.20); WHITE BLOOD COUNT 2.1 K/uL (4.1-10.2)
[2017-02-02 12:47] LABS: MCV 99.6 FL (83-99); PLATELET COUNT 83 K/uL (156-360)
[2017-02-02 13:24] LABS: ANION GAP 7 MEQ/L (2-14); CHLORIDE 110 MEQ/L (99-109); GFR ESTIMATE (CALCULATED) > 59 mL/min/; GLUCOSE 174 mg/dL (70-99); POTASSIUM 3.6 MEQ/L (3.7-5.4); SAMPLE HEMOLYSIS CHECK 0; SAMPLE ICTERIC CHECK 0; SAMPLE LIPEMIA CHECK 0; SODIUM 142 MEQ/L (136-147); UREA NITROGEN (BUN) 18 mg/dL (9-23)
[2017-02-02 13:25] LABS: MAGNESIUM 2.1 mg/dl (1.3-2.7)
[2017-02-02 13:43] LABS: POINT-OF-CARE METER ID UU13113748
[2017-02-02 15:14] LABS: BASE EXCESS 4.6 mEq/L (-3 to +3); BICARBONATE 28.2 mEq/L (22-26); CARBOXY HGB 1.9 % (0-5); COMMENTS - BLOOD GASES A+C+; DEVICE 980; FI02 30 %; METHEMOGLOBIN 1.3 % (0-1.5); MODE TC; PCO2 37 mm Hg (35-45); PO2 67 mm Hg (80-100); SITE LR; TOTAL RESP RATE 23 resp/min; pH 7.49 (7.35-7.45)
[2017-02-02 15:15] LABS: PEEP 5 CM/H20
[2017-02-02 18:08] LABS: POINT-OF-CARE METER ID UU13113748
[2017-02-03] VITALS (22 sets, daily range): BP systolic 122–204; BP diastolic 53–91
[2017-02-03 06:25] LABS: EOSINOPHIL (%) 0 % (0-5); HEMATOCRIT 25.6 % (36.0-46.0); IMMATURE GRANULOCYTE (%) 4.8 % (0.0-0.7); IMMATURE GRANULOCYTE COUNT 0.1 K/uL; INSTRUMENT ABS NEUTROPHIL CT 1.5 K/uL; LYMPHOCYTE COUNT 0.6 K/uL (1.0-2.8); MCH 32.3 PG (29.0-34.0); MCHC 33.2 G/DL (30.0-36.0); MCV 97.3 FL (83-99); MEAN PLAT.VOLUME 10.3 uM^3 (9.5-12.4); MONOCYTE (%) 13.9 % (3-12); MONOCYTE COUNT 0.4 K/uL (0-0.8); NEUTROPHIL (%) 57.5 % (45-76); NEUTROPHIL COUNT 1.5 K/uL (1.8-6.4); PLATELET COUNT 86 K/uL (156-360); RBC DIS.WIDTH-CV 13.9 % (11.8-14.6); RBC DIS.WIDTH-SD 49.8 % (39-53); RED BLOOD COUNT 2.63 M/uL (3.80-5.20); WHITE BLOOD COUNT 2.5 K/uL (4.1-10.2)
[2017-02-03 07:03] LABS: ANION GAP 7 MEQ/L (2-14); CHLORIDE 104 MEQ/L (99-109); GFR ESTIMATE (CALCULATED) > 59 mL/min/; MAGNESIUM 1.8 mg/dl (1.3-2.7); POTASSIUM 2.9 MEQ/L (3.7-5.4); SAMPLE HEMOLYSIS CHECK 0; SAMPLE ICTERIC CHECK 0; SAMPLE LIPEMIA CHECK 0; SODIUM 143 MEQ/L (136-147); UREA NITROGEN (BUN) 12 mg/dL (9-23)
[2017-02-03 07:04] LABS: GLUCOSE 90 mg/dL (70-99)
[2017-02-03 20:39] LABS: ANION GAP 9 MEQ/L (2-14); CHLORIDE 102 MEQ/L (99-109); GFR ESTIMATE (CALCULATED) > 59 mL/min/; GLUCOSE 131 mg/dL (70-99); SAMPLE HEMOLYSIS CHECK 0; SAMPLE ICTERIC CHECK 0; SAMPLE LIPEMIA CHECK 0; SODIUM 139 MEQ/L (136-147); UREA NITROGEN (BUN) 15 mg/dL (9-23)
[2017-02-03 20:40] LABS: POTASSIUM 4.3 MEQ/L (3.7-5.4)
[2017-02-04] VITALS (19 sets, daily range): BP systolic 116–187; BP diastolic 51–88
[2017-02-04 05:33] LABS: HEMATOCRIT 24.9 % (36.0-46.0); IMMATURE GRANULOCYTE (%) 3.8 % (0.0-0.7); IMMATURE GRANULOCYTE COUNT 0.1 K/uL; LYMPHOCYTE COUNT 0.7 K/uL (1.0-2.8); MCHC 32.5 G/DL (30.0-36.0); MCV 98.4 FL (83-99); MONOCYTE (%) 14.4 % (3-12); MONOCYTE COUNT 0.3 K/uL (0-0.8); NEUTROPHIL (%) 45.9 % (45-76); PLATELET COUNT 74 K/uL (156-360); RBC DIS.WIDTH-CV 13.5 % (11.8-14.6); RBC DIS.WIDTH-SD 48.1 % (39-53); RED BLOOD COUNT 2.53 M/uL (3.80-5.20); WHITE BLOOD COUNT 2.1 K/uL (4.1-10.2)
[2017-02-04 06:35] LABS: ANION GAP 8 MEQ/L (2-14); CHLORIDE 105 MEQ/L (99-109); GFR ESTIMATE (CALCULATED) > 59 mL/min/; GLUCOSE 119 mg/dL (70-99); MAGNESIUM 1.8 mg/dl (1.3-2.7); POTASSIUM 3.7 MEQ/L (3.7-5.4); SAMPLE HEMOLYSIS CHECK 0; SAMPLE ICTERIC CHECK 0; SAMPLE LIPEMIA CHECK 0; SODIUM 142 MEQ/L (136-147); UREA NITROGEN (BUN) 15 mg/dL (9-23)
[2017-02-05] VITALS (15 sets, daily range): BP systolic 113–184; BP diastolic 51–78
[2017-02-05 04:48] LABS: EOSINOPHIL (%) 0.4 % (0-5); HEMATOCRIT 27.7 % (36.0-46.0); IMMATURE GRANULOCYTE (%) 4.8 % (0.0-0.7); IMMATURE GRANULOCYTE COUNT 0.1 K/uL; INSTRUMENT ABS NEUTROPHIL CT 1.7 K/uL; LYMPHOCYTE COUNT 0.4 K/uL (1.0-2.8); MCH 31.2 PG (29.0-34.0); MCHC 31.4 G/DL (30.0-36.0); MCV 99.3 FL (83-99); MEAN PLAT.VOLUME 10.3 uM^3 (9.5-12.4); MONOCYTE (%) 8.9 % (3-12); MONOCYTE COUNT 0.2 K/uL (0-0.8); NEUTROPHIL COUNT 1.7 K/uL (1.8-6.4); PLATELET COUNT 82 K/uL (156-360); RBC DIS.WIDTH-CV 13.4 % (11.8-14.6); RBC DIS.WIDTH-SD 49.1 % (39-53); RED BLOOD COUNT 2.79 M/uL (3.80-5.20); WHITE BLOOD COUNT 2.5 K/uL (4.1-10.2)
[2017-02-05 05:00] LABS: CHLORIDE 105 mEq/L (99-109); POTASSIUM 4.2 mEq/L (3.7-5.4); SODIUM 142 mEq/L (136-147)
[2017-02-05 05:01] LABS: GLUCOSE 171 mg/dL (70-99)
[2017-02-05 05:03] LABS: ANION GAP 8 MEQ/L (2-14)
[2017-02-05 05:05] LABS: GFR ESTIMATE (CALCULATED) > 59 mL/min/
[2017-02-05 05:06] LABS: INTER. NORMALIZED RATIO 1.1; PROTHROMBIN TIME 11.1 (9.2-11.2); PTT 23.3 (25-32); UREA NITROGEN (BUN) 16 mg/dL (9-23)
[2017-02-06] VITALS (7 sets, daily range): BP systolic 107–167; BP diastolic 50–79
[2017-02-06 05:37] LABS: ANION GAP 6 MEQ/L (2-14); CHLORIDE 104 MEQ/L (99-109); GFR ESTIMATE (CALCULATED) > 59 mL/min/; GLUCOSE 125 mg/dL (70-99); POTASSIUM 4.1 MEQ/L (3.7-5.4); SAMPLE HEMOLYSIS CHECK 0; SAMPLE ICTERIC CHECK 0; SAMPLE LIPEMIA CHECK 0; SODIUM 141 MEQ/L (136-147); UREA NITROGEN (BUN) 20 mg/dL (9-23)
[2017-02-07 00:07] VITALS: BP 136/72
[2017-02-07 03:41] VITALS: BP 120/62
[2017-02-07 07:50] VITALS: BP 162/70
[2017-02-07 07:58] LABS: HEMATOCRIT 27.4 % (36.0-46.0); MCH 31.5 PG (29.0-34.0); MCV 101.5 FL (83-99); PLATELET COUNT 85 K/uL (156-360); RBC DIS.WIDTH-CV 13.9 % (11.8-14.6); RBC DIS.WIDTH-SD 51.6 % (39-53); WHITE BLOOD COUNT 3.3 K/uL (4.1-10.2)
[2017-02-07 08:16] LABS: ANION GAP 6 MEQ/L (2-14); CHLORIDE 105 MEQ/L (99-109); GFR ESTIMATE (CALCULATED) > 59 mL/min/; POTASSIUM 4.3 MEQ/L (3.7-5.4); SAMPLE HEMOLYSIS CHECK 0; SAMPLE ICTERIC CHECK 0; SAMPLE LIPEMIA CHECK 0; SODIUM 142 MEQ/L (136-147); UREA NITROGEN (BUN) 18 mg/dL (9-23)
[2017-02-07 08:17] LABS: GLUCOSE 90 mg/dL (70-99)
[2017-02-07 09:07] LABS: ABS NEUTROPHIL COUNT 1.9; BAND NEUTROPHILS 0.9 % (0-8.0); EOSINOPHIL ABS CT 0.3; EOSINOPHILS 8.9 % (0-5.0); INSTRUMENT ABS NEUTROPHIL CT 1.6 K/uL; METAMYELOCYTES 0.9 %; MYELOCYTES 1.8 %; NUCLEATED RBC'S 0.9; PLAT.SUFFICIENCY DECREASED; SMUDGE CELLS 7.1
[2017-02-07 09:12] LABS: SEG.NEUTROPHILS 55.4 % (46.0-76.0)
[2017-02-07 11:35] VITALS: BP 140/61
[2017-02-07 15:35] VITALS: BP 108/67
[2017-02-07 20:03] VITALS: BP 124/62
[2017-02-08 01:00] VITALS: BP 170/77
[2017-02-08 03:37] VITALS: BP 178/64
[2017-02-08 08:00] VITALS: BP 176/72
[2017-02-08 15:45] VITALS: BP 107/52
[2017-02-09 00:36] VITALS: BP 180/76
[2017-02-09 08:06] VITALS: BP 104/55
[2017-02-09 10:08] LABS: C DIFF TOXIN NEGATIVE (NEGATIVE); PROBE CHECK PASS; SPECIMEN PROCESSING CONTROL PASS
[2017-02-09 16:22] VITALS: BP 112/78
[2017-02-09 20:46] VITALS: BP 124/68
[2017-02-10 00:27] VITALS: BP 136/66
[2017-02-10 07:04] LABS: HEMATOCRIT 27.7 % (36.0-46.0); MCH 32.1 PG (29.0-34.0); MCHC 31.8 G/DL (30.0-36.0); MCV 101.1 FL (83-99); PLATELET COUNT 97 K/uL (156-360); RBC DIS.WIDTH-CV 14.1 % (11.8-14.6); RBC DIS.WIDTH-SD 50.8 % (39-53); RED BLOOD COUNT 2.74 M/uL (3.80-5.20); WHITE BLOOD COUNT 3.9 K/uL (4.1-10.2)
[2017-02-10] MEDS ORDERED: LISINOPRIL10 MG PO (07:12)
[2017-02-10] MEDS ORDERED: TYLENOL REGULA325 MG PO (07:13)
[2017-02-10] MEDS ORDERED: LEVETIRACETAM750 MG PO (07:13)
[2017-02-10] MEDS ORDERED: CLONIDINE1 EAC1 TD (07:13)
[2017-02-10] MEDS ORDERED: GABAPENTIN400 MG PO (07:13)
[2017-02-10] MEDS ORDERED: DIVALPROEX SOD250 MG PO (07:13)
[2017-02-10 07:28] LABS: ANION GAP 7 MEQ/L (2-14); CHLORIDE 106 MEQ/L (99-109); GFR ESTIMATE (CALCULATED) > 59 mL/min/; GLUCOSE 102 mg/dL (70-99); POTASSIUM 4.5 MEQ/L (3.7-5.4); SAMPLE HEMOLYSIS CHECK 0; SAMPLE ICTERIC CHECK 0; SAMPLE LIPEMIA CHECK 0; SODIUM 143 MEQ/L (136-147); UREA NITROGEN (BUN) 17 mg/dL (9-23)
[2017-02-10 07:54] VITALS: BP 130/66
== END 2017-02-10 13:52 | DRG 100 ==
LOC: EME 13:12 → 2EAST 17:41 → 4WEST 17:41 → 4EAST 17:41 → EDOF 17:41 → 4EAST 23:17 → 4WEST 01-31 00:01 → 2EAST 02-06 20:52
PROVIDERS: Emergency Medicine; Internal Medicine; Internal Medicine Critical Care Medicine; Internal Medicine Nephrology; Nurse Practitioner Adult Health; Pediatrics; Physician Assistant
DX: G40.109 Localization-related (focal) (partial) symptomatic epilepsy and epileptic syndromes with simple partial seizures, not intractable, without status epilepticus (principal); R41.82 Altered mental status, unspecified; N39.0 Urinary tract infection, site not specified; J69.0 Pneumonitis due to inhalation of food and vomit; J96.01 Acute respiratory failure with hypoxia; G93.40 Encephalopathy, unspecified; I27.2 Other secondary pulmonary hypertension; G62.9 Polyneuropathy, unspecified; J44.9 Chronic obstructive pulmonary disease, unspecified; D69.6 Thrombocytopenia, unspecified; I11.0 Hypertensive heart disease with heart failure; I50.32 Chronic diastolic (congestive) heart failure; E87.1 Hypo-osmolality and hyponatremia; I65.21 Occlusion and stenosis of right carotid artery; I10 Essential (primary) hypertension; R11.2 Nausea with vomiting, unspecified; G89.29 Other chronic pain; B96.1 Klebsiella pneumoniae [K. pneumoniae] as the cause of diseases classified elsewhere; B96.20 Unspecified Escherichia coli [E. coli] as the cause of diseases classified elsewhere; R19.7 Diarrhea, unspecified; J98.11 Atelectasis; E63.9 Nutritional deficiency, unspecified; E78.5 Hyperlipidemia, unspecified; E53.8 Deficiency of other specified B group vitamins; I25.10 Atherosclerotic heart disease of native coronary artery without angina pectoris; D70.2 Other drug-induced agranulocytosis; D70.9 Neutropenia, unspecified; F17.200 Nicotine dependence, unspecified, uncomplicated; I67.2 Cerebral atherosclerosis; J15.9 Unspecified bacterial pneumonia; M79.642 Pain in left hand; F03.90 Unspecified dementia, unspecified severity, without behavioral disturbance, psychotic disturbance, mood disturbance, and anxiety; E87.6 Hypokalemia; D64.9 Anemia, unspecified; M79.602 Pain in left arm; F32.9 Major depressive disorder, single episode, unspecified; R29.6 Repeated falls; I73.9 Peripheral vascular disease, unspecified; Z95.1 Presence of aortocoronary bypass graft; Z79.82 Long term (current) use of aspirin; I25.2 Old myocardial infarction; I69.354 Hemiplegia and hemiparesis following cerebral infarction affecting left non-dominant side; Z91.81 History of falling; Z68.20 Body mass index [BMI] 20.0-20.9, adult; Z79.02 Long term (current) use of antithrombotics/antiplatelets; Z95.5 Presence of coronary angioplasty implant and graft
CPT/HCPCS: 31720; 36600; 70450; 70496; 70498; 70551; 71010; 71020; 73560; 74176; 80048; 80048 91; 80053; 80069; 80306 90; 81003; 82140; 82272; 82306; 82607; 82728; 82746; 82803; 82948; 83540; 83605; 83690; 83735; 84100; 84132 91; 84466; 84484; 84999; 85007; 85025; 85027; 85045; 85610; 85651; 85730; 86618; 86780; 87040; 87070; 87077; 87086; 87186; 87205; 87493; 87506; 87641; 92526 GN; 92610 GN; 93005; 93971; 94002; 94003; 94640; 94640 76; 94667; 94668; 94760; 94799; 95819; 97530 GO; 97530 GP; 99202; 99281; 99285; C9113; G0480; J0360; J0696; J1650; J1815; J1885; J1940; J1953; J2060; J2270; J2405; J2543; J2704; J2920; J2930; J3010; J3370; J3475; J3480; J7030; J7040; J7050; J7512; J7608; P9045; S0028

== ENCOUNTER 2017-03-19 09:53 | Emergency (ER) | payer OTHER ==
[~2017-03-19] VITALS: Ht 162.6 cm; Wt 53.6 kg
[~2017-03-19 09:53] MED LIST changes: +CLONIDINE1 EAC1 TD; +DIVALPROEX SOD250 MG PO; +FLEXERIL5 MG PO; +LEVETIRACETAM750 MG PO; +LISINOPRIL10 MG PO
[2017-03-19 10:55] LABS: HEMATOCRIT 29.1 % (36.0-46.0); IMMATURE GRANULOCYTE (%) 0.8 % (0.0-0.7); INSTRUMENT ABS NEUTROPHIL CT 2.6 K/uL; LYMPHOCYTE COUNT 0.9 K/uL (1.0-2.8); MCH 31.4 PG (29.0-34.0); MCHC 31.3 G/DL (30.0-36.0); MCV 100.3 FL (83-99); MEAN PLAT.VOLUME 9.4 uM^3 (9.5-12.4); MONOCYTE (%) 10.7 % (3-12); MONOCYTE COUNT 0.4 K/uL (0-0.8); NEUTROPHIL (%) 65.3 % (45-76); NEUTROPHIL COUNT 2.6 K/uL (1.8-6.4); PLATELET COUNT 116 K/uL (156-360); RBC DIS.WIDTH-CV 14.9 % (11.8-14.6); RBC DIS.WIDTH-SD 54.4 % (39-53); WHITE BLOOD COUNT 3.9 K/uL (4.1-10.2)
[2017-03-19 11:00] LABS: INTER. NORMALIZED RATIO 1.1; PROTHROMBIN TIME 12.4 SEC (10.2-12.9)
[2017-03-19 11:22] LABS: CHLORIDE 114 mEq/L (99-109); POTASSIUM 4.6 mEq/L (3.7-5.4); SODIUM 141 mEq/L (136-147)
[2017-03-19 11:24] LABS: GLUCOSE 104 mg/dL (70-99)
[2017-03-19 11:25] LABS: ANION GAP 8 MEQ/L (2-14)
[2017-03-19 11:28] LABS: GFR ESTIMATE (CALCULATED) 58 mL/min/; UREA NITROGEN (BUN) 30 mg/dL (9-23)
[2017-03-19 12:38] VITALS: BP 146/59
== END 2017-03-19 12:30 | disposition home or self-care (01) ==
LOC: EME 09:53
PROVIDERS: Emergency Medicine
PROC: 3E0234Z Introduction of Serum, Toxoid and Vaccine into Muscle, Percutaneous Approach (ICD-10-PCS; principal; 2017-03-19)
DX: S09.8XXA Other specified injuries of head, initial encounter (principal); S51.811A Laceration without foreign body of right forearm, initial encounter; S00.83XA Contusion of other part of head, initial encounter; W06.XXXA Fall from bed, initial encounter; Y92.003 Bedroom of unspecified non-institutional (private) residence as the place of occurrence of the external cause; Z23 Encounter for immunization; I10 Essential (primary) hypertension; J44.9 Chronic obstructive pulmonary disease, unspecified; Z79.02 Long term (current) use of antithrombotics/antiplatelets; Z79.82 Long term (current) use of aspirin; Z96.643 Presence of artificial hip joint, bilateral; Z96.653 Presence of artificial knee joint, bilateral; F17.200 Nicotine dependence, unspecified, uncomplicated
CPT/HCPCS: 70450; 70486; 80048; 85025; 85610; 99281; 99284

== ENCOUNTER 2017-03-27 11:37 | Inpatient (IN) | payer OTHER ==
[~2017-03-27] VITALS: Ht 162.6 cm; Wt 56.3 kg
[~2017-03-27 11:37] MED LIST changes: +DITROPAN XL5 MG PO; -DITROPAN5 MG PO; -OMEPRAZOLE40 M1 PO; +PRILOSEC20 MG PO; -SERTRALINE HCL50 MG PO; +ZOLOFT100 MG PO
[2017-03-27 12:32] LABS: EOSINOPHIL COUNT 0.1 K/uL (0-0.3); HEMATOCRIT 28.9 % (36.0-46.0); INSTRUMENT ABS NEUTROPHIL CT 2.2 K/uL; LYMPHOCYTE COUNT 1.1 K/uL (1.0-2.8); MCH 31.8 PG (29.0-34.0); MCHC 31.8 G/DL (30.0-36.0); MEAN PLAT.VOLUME 9.3 uM^3 (9.5-12.4); MONOCYTE (%) 12.8 % (3-12); MONOCYTE COUNT 0.5 K/uL (0-0.8); NEUTROPHIL (%) 55.5 % (45-76); NEUTROPHIL COUNT 2.2 K/uL (1.8-6.4); PLATELET COUNT 116 K/uL (156-360); RBC DIS.WIDTH-CV 15.7 % (11.8-14.6); RED BLOOD COUNT 2.89 M/uL (3.80-5.20); WHITE BLOOD COUNT 3.9 K/uL (4.1-10.2)
[2017-03-27 12:41] LABS: INTER. NORMALIZED RATIO 1.1; PROTHROMBIN TIME 12.2 SEC (10.2-12.9)
[2017-03-27 12:42] LABS: CHLORIDE 113 mEq/L (99-109); POTASSIUM 4.4 mEq/L (3.7-5.4); SODIUM 142 mEq/L (136-147)
[2017-03-27 12:43] LABS: MAGNESIUM 2.1 mg/dL (1.3-2.7); PTT 28.1 SEC (25-37)
[2017-03-27 12:44] LABS: GLUCOSE 91 mg/dL (70-99)
[2017-03-27 12:46] LABS: ANION GAP 6 MEQ/L (2-14)
[2017-03-27 12:48] LABS: GFR ESTIMATE (CALCULATED) > 59 mL/min/
[2017-03-27 12:49] LABS: UREA NITROGEN (BUN) 19 mg/dL (9-23)
[2017-03-27 12:53] LABS: TROP-I INTERPRETATION NEGATIVE; TROPONIN-I < 0.01 ng/mL (0.0-0.30)
[2017-03-27] MEDS ORDERED: FEOSOL325 MG PO (13:26)
[2017-03-27] MEDS ORDERED: ERGOCALCIF50000 UNIT PO (13:27)
[2017-03-27] MEDS ORDERED: CYANOCOBAL1000 MCG/2 IM (13:28)
[2017-03-27] MEDS ORDERED: LIDOCAINE HCL35 GM TP (13:29)
[2017-03-27] MEDS ORDERED: LOPRESSOR25 MG PO (13:32)
[2017-03-27] MEDS ORDERED: PROAIR RESPICL90 MCG IH (13:35)
[2017-03-27] MEDS ORDERED: VITAMIN C1000 MG PO (13:35)
[2017-03-27 14:14] LABS: ADD MIUA? YES; BILIRUBIN NEGATIVE; BLOOD NEGATIVE; COLOR YELLOW ((YELLOW)); GLUCOSE (STRIP) NEGATIVE; KETONES NEGATIVE; LEUKOCYTES MODERATE; NITRITE NEGATIVE; PROTEIN (STRIP) 30; SPECIFIC GRAVITY 1.012 (1.000-1.030); UROBILINOGEN 0.2 MG/DL (0.2-1.0)
[2017-03-27 14:21] LABS: BACTERIA NONE SEEN /HPF; EPITHELIAL CELLS NONE SEEN /HPF; MUCUS TRACE /LPF; RED BLOOD CELLS NONE SEEN /HPF (0-5); UCUL ADDED? YES; WHITE BLOOD CELLS 40-50 /HPF (0-5)
[2017-03-27 16:48] VITALS: BP 192/78
[2017-03-27 18:00] VITALS: BP 192/78
[2017-03-27 19:58] VITALS: BP 167/71
[2017-03-27 23:43] VITALS: BP 180/74
[2017-03-28 03:50] VITALS: BP 132/58
[2017-03-28 06:17] LABS: EOSINOPHIL (%) 2.8 % (0-5); EOSINOPHIL COUNT 0.1 K/uL (0-0.3); HEMATOCRIT 25.4 % (36.0-46.0); IMMATURE GRANULOCYTE (%) 0.7 % (0.0-0.7); INSTRUMENT ABS NEUTROPHIL CT 1.5 K/uL; LYMPHOCYTE COUNT 0.8 K/uL (1.0-2.8); MCH 31.9 PG (29.0-34.0); MCHC 31.5 G/DL (30.0-36.0); MCV 101.2 FL (83-99); MEAN PLAT.VOLUME 9.5 uM^3 (9.5-12.4); MONOCYTE (%) 12.9 % (3-12); MONOCYTE COUNT 0.4 K/uL (0-0.8); NEUTROPHIL (%) 53.9 % (45-76); NEUTROPHIL COUNT 1.5 K/uL (1.8-6.4); PLATELET COUNT 102 K/uL (156-360); RBC DIS.WIDTH-CV 15.5 % (11.8-14.6); RBC DIS.WIDTH-SD 57.1 % (39-53); RED BLOOD COUNT 2.51 M/uL (3.80-5.20); WHITE BLOOD COUNT 2.9 K/uL (4.1-10.2)
[2017-03-28 06:40] LABS: ANION GAP 5 MEQ/L (2-14); CHLORIDE 113 MEQ/L (99-109); GFR ESTIMATE (CALCULATED) 58 mL/min/; GLUCOSE 87 mg/dL (70-99); POTASSIUM 4.1 MEQ/L (3.7-5.4); SAMPLE HEMOLYSIS CHECK 0; SAMPLE ICTERIC CHECK 0; SAMPLE LIPEMIA CHECK 0; SODIUM 143 MEQ/L (136-147); UREA NITROGEN (BUN) 16 mg/dL (9-23)
[2017-03-28 08:44] VITALS: BP 176/72
[2017-03-28 11:44] VITALS: BP 153/65
[2017-03-28 16:24] VITALS: BP 177/74
[2017-03-28 19:40] VITALS: BP 139/65
[2017-03-28 23:29] VITALS: BP 141/63
[2017-03-29 03:35] VITALS: BP 146/69
[2017-03-29 08:07] VITALS: BP 188/79
[2017-03-29 08:59] LABS: EOSINOPHIL (%) 3.4 % (0-5); EOSINOPHIL COUNT 0.1 K/uL (0-0.3); HEMATOCRIT 27.4 % (36.0-46.0); IMMATURE GRANULOCYTE (%) 1.3 % (0.0-0.7); INSTRUMENT ABS NEUTROPHIL CT 1.3 K/uL; LYMPHOCYTE COUNT 0.8 K/uL (1.0-2.8); MCH 32.3 PG (29.0-34.0); MCHC 31.8 G/DL (30.0-36.0); MCV 101.9 FL (83-99); MEAN PLAT.VOLUME 9.4 uM^3 (9.5-12.4); MONOCYTE (%) 9.4 % (3-12); MONOCYTE COUNT 0.2 K/uL (0-0.8); NEUTROPHIL (%) 53.2 % (45-76); NEUTROPHIL COUNT 1.3 K/uL (1.8-6.4); PLATELET COUNT 96 K/uL (156-360); RBC DIS.WIDTH-CV 15.9 % (11.8-14.6); RBC DIS.WIDTH-SD 58.6 % (39-53); RED BLOOD COUNT 2.69 M/uL (3.80-5.20); WHITE BLOOD COUNT 2.4 K/uL (4.1-10.2)
[2017-03-29 09:56] LABS: ALKALINE PHOSPHATASE 74 IU/L (3-129); ANION GAP 7 MEQ/L (2-14); CHLORIDE 109 MEQ/L (99-109); GFR ESTIMATE (CALCULATED) > 59 mL/min/; IRON 53 MCG/DL (35-150); POTASSIUM 4.2 MEQ/L (3.7-5.4); SAMPLE HEMOLYSIS CHECK 0; SAMPLE ICTERIC CHECK 0; SAMPLE LIPEMIA CHECK 0; SODIUM 143 MEQ/L (136-147); TOTAL BILIRUBIN 0.3 MG/DL (0.0-1.0); UREA NITROGEN (BUN) 16 mg/dL (9-23)
[2017-03-29 10:02] LABS: GLUCOSE 111 mg/dL (70-99)
[2017-03-29 11:26] VITALS: BP 111/55
[2017-03-29 16:00] VITALS: BP 108/52
[2017-03-29 19:49] VITALS: BP 117/55
[2017-03-29 22:48] VITALS: BP 140/64
[2017-03-30 04:00] VITALS: BP 141/63
[2017-03-30 07:11] LABS: EOSINOPHIL (%) 3.6 % (0-5); EOSINOPHIL COUNT 0.1 K/uL (0-0.3); HEMATOCRIT 25.9 % (36.0-46.0); IMMATURE GRANULOCYTE (%) 0.7 % (0.0-0.7); INSTRUMENT ABS NEUTROPHIL CT 1.6 K/uL; LYMPHOCYTE COUNT 0.7 K/uL (1.0-2.8); MCH 33.1 PG (29.0-34.0); MCHC 32.4 G/DL (30.0-36.0); MEAN PLAT.VOLUME 9.6 uM^3 (9.5-12.4); MONOCYTE (%) 12.9 % (3-12); MONOCYTE COUNT 0.4 K/uL (0-0.8); NEUTROPHIL (%) 56.6 % (45-76); NEUTROPHIL COUNT 1.6 K/uL (1.8-6.4); PLATELET COUNT 93 K/uL (156-360); RBC DIS.WIDTH-CV 15.6 % (11.8-14.6); RBC DIS.WIDTH-SD 57.7 % (39-53); RED BLOOD COUNT 2.54 M/uL (3.80-5.20); WHITE BLOOD COUNT 2.8 K/uL (4.1-10.2)
[2017-03-30 07:38] LABS: ALKALINE PHOSPHATASE 79 IU/L (3-129); ANION GAP 6 MEQ/L (2-14); CHLORIDE 109 MEQ/L (99-109); GFR ESTIMATE (CALCULATED) 58 mL/min/; GLUCOSE 90 mg/dL (70-99); POTASSIUM 4.6 MEQ/L (3.7-5.4); SAMPLE HEMOLYSIS CHECK 0; SAMPLE ICTERIC CHECK 0; SAMPLE LIPEMIA CHECK 0; SODIUM 142 MEQ/L (136-147); TOTAL BILIRUBIN 0.3 MG/DL (0.0-1.0); UREA NITROGEN (BUN) 17 mg/dL (9-23)
[2017-03-30 08:32] VITALS: BP 115/56
[2017-03-30 11:24] VITALS: BP 139/63
[2017-03-30 19:46] VITALS: BP 161/69
[2017-03-30 23:55] VITALS: BP 125/60
[2017-03-31 03:28] VITALS: BP 109/56
[2017-03-31 08:23] LABS: FERRITIN 190 NG/ML (10-291); IRON 16 MCG/DL (35-150)
[2017-03-31 08:40] VITALS: BP 110/55
[2017-03-31 16:34] VITALS: BP 140/65
[2017-03-31 19:21] VITALS: BP 114/55
[2017-03-31 23:50] VITALS: BP 130/63
[2017-04-01 03:51] VITALS: BP 162/70
[2017-04-01 06:16] LABS: EOSINOPHIL (%) 0 % (0-5); HEMATOCRIT 25.8 % (36.0-46.0); IMMATURE GRANULOCYTE (%) 0.7 % (0.0-0.7); INSTRUMENT ABS NEUTROPHIL CT 3.3 K/uL; LYMPHOCYTE COUNT 0.7 K/uL (1.0-2.8); MCH 32.4 PG (29.0-34.0); MCHC 32.6 G/DL (30.0-36.0); MCV 99.6 FL (83-99); MEAN PLAT.VOLUME 10.2 uM^3 (9.5-12.4); MONOCYTE (%) 9.2 % (3-12); MONOCYTE COUNT 0.4 K/uL (0-0.8); NEUTROPHIL (%) 74.9 % (45-76); NEUTROPHIL COUNT 3.3 K/uL (1.8-6.4); PLATELET COUNT 86 K/uL (156-360); RBC DIS.WIDTH-CV 14.9 % (11.8-14.6); RBC DIS.WIDTH-SD 54.5 % (39-53); RED BLOOD COUNT 2.59 M/uL (3.80-5.20); WHITE BLOOD COUNT 4.3 K/uL (4.1-10.2)
[2017-04-01 06:39] LABS: ANION GAP 6 MEQ/L (2-14); CHLORIDE 106 MEQ/L (99-109); GFR ESTIMATE (CALCULATED) 58 mL/min/; GLUCOSE 99 mg/dL (70-99); POTASSIUM 4.7 MEQ/L (3.7-5.4); SAMPLE HEMOLYSIS CHECK 0; SAMPLE ICTERIC CHECK 0; SAMPLE LIPEMIA CHECK 0; SODIUM 139 MEQ/L (136-147)
[2017-04-01 06:42] LABS: UREA NITROGEN (BUN) 29 mg/dL (9-23)
[2017-04-01] MEDS ORDERED: LEVOFLOXACIN750 MG PO (07:28)
[2017-04-01] MEDS ORDERED: MEDROL DOSEPAK4 MG PO (07:28)
[2017-04-01 08:03] VITALS: BP 111/53
[2017-04-01 11:44] VITALS: BP 120/57
== END 2017-04-01 15:00 | DRG 189 ==
LOC: EME 11:37 → ENRESERV 15:11 → EDOF 15:11 → 3EAST 15:11 → ENRESERV 15:45 → 3EAST 16:13
PROVIDERS: Emergency Medicine; Nurse Practitioner Adult Health; Pediatrics; Physician Assistant
DX: J96.21 Acute and chronic respiratory failure with hypoxia (principal); J44.0 Chronic obstructive pulmonary disease with (acute) lower respiratory infection; J44.1 Chronic obstructive pulmonary disease with (acute) exacerbation; J18.9 Pneumonia, unspecified organism; E78.5 Hyperlipidemia, unspecified; F17.210 Nicotine dependence, cigarettes, uncomplicated; G40.909 Epilepsy, unspecified, not intractable, without status epilepticus; Z99.81 Dependence on supplemental oxygen; D64.9 Anemia, unspecified; J98.11 Atelectasis; I69.354 Hemiplegia and hemiparesis following cerebral infarction affecting left non-dominant side; R32 Unspecified urinary incontinence; J20.9 Acute bronchitis, unspecified; K21.9 Gastro-esophageal reflux disease without esophagitis; I25.10 Atherosclerotic heart disease of native coronary artery without angina pectoris; Z96.643 Presence of artificial hip joint, bilateral; Z96.653 Presence of artificial knee joint, bilateral; I11.0 Hypertensive heart disease with heart failure; I50.9 Heart failure, unspecified
CPT/HCPCS: 70450; 70551; 71010; 71260; 73501; 73522; 74177; 80048; 80053; 80069; 81003; 82272; 82607; 82728; 82746; 83540; 83735; 84466; 84484; 85025; 85610; 85730; 87040; 87086; 93005; 94640; 94640 76; 94799; 97530 GP; 99202; 99281; 99285; J0456; J0692; J0696; J1644; J1956; J7030; J7050; J7512

== ENCOUNTER 2017-05-28 22:11 | Inpatient (IN) | payer OTHER ==
[~2017-05-28] VITALS: Ht 160 cm; Wt 54.7 kg
[~2017-05-28 22:11] MED LIST changes: +ASCORBIC ACID500 M3 PO; +FEOSOL325 MG PO; +LEVOFLOXACIN750 MG PO; +MEDROL DOSEPAK4 MG PO; +PROAIR RESPICL90 MCG IH
[2017-05-28 23:03] LABS: MCH 30.9 PG (29.0-34.0); MCHC 32.1 G/DL (30.0-36.0); MCV 96.3 FL (83-99); MEAN PLAT.VOLUME 9.3 uM^3 (9.5-12.4); PLATELET COUNT 99 K/uL (156-360); RBC DIS.WIDTH-CV 13.3 % (11.8-14.6); RBC DIS.WIDTH-SD 46.8 % (39-53); RED BLOOD COUNT 3.53 M/uL (3.80-5.20)
[2017-05-28 23:09] LABS: INTER. NORMALIZED RATIO 1.1; PROTHROMBIN TIME 12.2 SEC (10.2-12.9)
[2017-05-28 23:11] LABS: PTT 30.4 SEC (25-37)
[2017-05-28 23:16] LABS: CHLORIDE 109 mEq/L (99-109); POTASSIUM 4.4 mEq/L (3.7-5.4); SODIUM 143 mEq/L (136-147)
[2017-05-28 23:18] LABS: GLUCOSE 99 mg/dL (70-99)
[2017-05-28 23:19] LABS: ANION GAP 9 MEQ/L (2-14)
[2017-05-28 23:20] LABS: TOTAL BILIRUBIN 0.3 mg/dL (0.0-1.0)
[2017-05-28 23:22] LABS: ALKALINE PHOSPHATASE 74 IU/L (3-129); GFR ESTIMATE (CALCULATED) 47 mL/min/
[2017-05-28 23:23] LABS: UREA NITROGEN (BUN) 27 mg/dL (9-23)
[2017-05-28 23:24] LABS: TROP-I INTERPRETATION NEGATIVE; TROPONIN-I < 0.01 ng/mL (0.0-0.30)
[2017-05-28 23:25] LABS: CREATINE KINASE 12 IU/L (1-294); LIPASE 16 U/L (1.0-51.0); TOTAL CK 12 IU/L (1-294)
[2017-05-28 23:32] LABS: CK-MB 0.6 ng/mL (0.0-4.9)
[2017-05-29 02:19] LABS: BASE EXCESS -0.2 mEq/L (-3 to +3); BICARBONATE 25.9 mEq/L (22-26); CARBOXY HGB 2.6 % (0-5); METHEMOGLOBIN 1.2 % (0-1.5); PO2 57 mm Hg (80-100)
[2017-05-29 02:20] LABS: COMMENTS - BLOOD GASES A+C+; DEVICE NC; O2 FLOW 3 L/MIN; PCO2 48 mm Hg (35-45); SITE RR; TOTAL RESP RATE 18 resp/min; pH 7.34 (7.35-7.45)
[2017-05-29 03:37] LABS: SAMPLE HEMOLYSIS CHECK 0; SAMPLE ICTERIC CHECK 0; SAMPLE LIPEMIA CHECK 0
[2017-05-29 03:43] LABS: HDL CHOLESTEROL 27 MG/DL (Desirable>=50); LDL CHOLESTEROL 33 mg/dL (Desirable<100); NON-HDL CHOLESTEROL 54 mg/dL (Desirable<160); TOTAL CHOLESTEROL 81 mg/dL (Desirable<200); TRIGLYCERIDES 106 MG/DL (Normal: <150)
[2017-05-29 04:00] VITALS: BP 181/77
[2017-05-29 04:15] LABS: POINT-OF-CARE METER ID UU14188625
[2017-05-29 05:53] LABS: MCH 31.7 PG (29.0-34.0); MCHC 32.8 G/DL (30.0-36.0); MCV 96.7 FL (83-99); MEAN PLAT.VOLUME 9.8 uM^3 (9.5-12.4); PLATELET COUNT 98 K/uL (156-360); RBC DIS.WIDTH-CV 13.4 % (11.8-14.6); RBC DIS.WIDTH-SD 47.6 % (39-53); RED BLOOD COUNT 3.31 M/uL (3.80-5.20)
[2017-05-29 06:14] LABS: ANION GAP 8 MEQ/L (2-14); CHLORIDE 108 MEQ/L (99-109); GFR ESTIMATE (CALCULATED) 52 mL/min/; GLUCOSE 83 mg/dL (70-99); POTASSIUM 4.1 MEQ/L (3.7-5.4); SAMPLE HEMOLYSIS CHECK 0; SAMPLE ICTERIC CHECK 0; SAMPLE LIPEMIA CHECK 0; SODIUM 141 MEQ/L (136-147); UREA NITROGEN (BUN) 25 mg/dL (9-23)
[2017-05-29 07:15] LABS: Estimated Average Glucose 85 mg/dL (70-123); HEMOGLOBIN A1c (GLYCOHEMOGLOB) 4.6 % HGB (Below 5.7)
[2017-05-29 20:02] VITALS: BP 150/73
[2017-05-30] VITALS (7 sets, daily range): BP systolic 155–214; BP diastolic 63–88
[2017-05-30 06:50] LABS: EOSINOPHIL (%) 0.3 % (0-5); HEMATOCRIT 29.3 % (36.0-46.0); IMMATURE GRANULOCYTE (%) 0.5 % (0.0-0.7); INSTRUMENT ABS NEUTROPHIL CT 4.9 K/uL; MCH 31.5 PG (29.0-34.0); MCHC 32.8 G/DL (30.0-36.0); MCV 96.1 FL (83-99); MEAN PLAT.VOLUME 10.2 uM^3 (9.5-12.4); MONOCYTE (%) 8.9 % (3-12); MONOCYTE COUNT 0.6 K/uL (0-0.8); NEUTROPHIL (%) 75.5 % (45-76); NEUTROPHIL COUNT 4.9 K/uL (1.8-6.4); PLATELET COUNT 89 K/uL (156-360); RBC DIS.WIDTH-CV 13.6 % (11.8-14.6); RBC DIS.WIDTH-SD 47.3 % (39-53); RED BLOOD COUNT 3.05 M/uL (3.80-5.20); WHITE BLOOD COUNT 6.5 K/uL (4.1-10.2)
[2017-05-30 07:16] LABS: ALKALINE PHOSPHATASE 62 IU/L (3-129); ANION GAP 8 MEQ/L (2-14); CHLORIDE 109 MEQ/L (99-109); GFR ESTIMATE (CALCULATED) > 59 mL/min/; GLUCOSE 92 mg/dL (70-99); POTASSIUM 4.2 MEQ/L (3.7-5.4); SAMPLE HEMOLYSIS CHECK 0; SAMPLE ICTERIC CHECK 0; SAMPLE LIPEMIA CHECK 0; SODIUM 142 MEQ/L (136-147); TOTAL BILIRUBIN 0.6 MG/DL (0.0-1.0); UREA NITROGEN (BUN) 19 mg/dL (9-23)
[2017-05-31 03:38] VITALS: BP 184/77
[2017-05-31 03:57] LABS: ADD MIUA? YES; BILIRUBIN NEGATIVE; BLOOD NEGATIVE; COLOR YELLOW ((YELLOW)); GLUCOSE (STRIP) NEGATIVE; KETONES 5; LEUKOCYTES TRACE; NITRITE NEGATIVE; PROTEIN (STRIP) 100; SPECIFIC GRAVITY 1.013 (1.000-1.030); UROBILINOGEN 0.2 MG/DL (0.2-1.0)
[2017-05-31 04:38] LABS: BACTERIA 1+ /HPF; CASTS NONE SEEN /LPF; CRYSTALS NONE SEEN; EPITHELIAL CELLS RARE /HPF; MUCUS NONE SEEN /LPF; RED BLOOD CELLS NONE SEEN /HPF (0-5)
[2017-05-31 05:31] VITALS: BP 146/66
[2017-05-31 06:29] LABS: EOSINOPHIL (%) 0.7 % (0-5); HEMATOCRIT 29.6 % (36.0-46.0); IMMATURE GRANULOCYTE (%) 0.5 % (0.0-0.7); INSTRUMENT ABS NEUTROPHIL CT 2.6 K/uL; LYMPHOCYTE COUNT 1.1 K/uL (1.0-2.8); MCH 31.3 PG (29.0-34.0); MCHC 33.1 G/DL (30.0-36.0); MCV 94.6 FL (83-99); MONOCYTE (%) 10.3 % (3-12); MONOCYTE COUNT 0.4 K/uL (0-0.8); NEUTROPHIL (%) 61.7 % (45-76); NEUTROPHIL COUNT 2.6 K/uL (1.8-6.4); PLATELET COUNT 80 K/uL (156-360); RBC DIS.WIDTH-CV 13.2 % (11.8-14.6); RBC DIS.WIDTH-SD 45.3 % (39-53); RED BLOOD COUNT 3.13 M/uL (3.80-5.20); WHITE BLOOD COUNT 4.3 K/uL (4.1-10.2)
[2017-05-31 06:53] LABS: ALKALINE PHOSPHATASE 61 IU/L (3-129); ANION GAP 12 MEQ/L (2-14); CHLORIDE 107 MEQ/L (99-109); GFR ESTIMATE (CALCULATED) > 59 mL/min/; GLUCOSE 92 mg/dL (70-99); POTASSIUM 4.1 MEQ/L (3.7-5.4); SAMPLE HEMOLYSIS CHECK 0; SAMPLE ICTERIC CHECK 0; SAMPLE LIPEMIA CHECK 0; SODIUM 144 MEQ/L (136-147); TOTAL BILIRUBIN 0.5 MG/DL (0.0-1.0); UREA NITROGEN (BUN) 25 mg/dL (9-23)
[2017-05-31 07:29] VITALS: BP 137/62
[2017-05-31 11:58] VITALS: BP 159/69
[2017-05-31 16:17] VITALS: BP 174/72
[2017-05-31 19:43] VITALS: BP 115/58
[2017-06-01 00:06] VITALS: BP 158/71
[2017-06-01 03:59] VITALS: BP 167/73
[2017-06-01 06:48] LABS: HEMATOCRIT 30.5 % (36.0-46.0); MCH 30.6 PG (29.0-34.0); MCV 95.3 FL (83-99); WHITE BLOOD COUNT 4.4 K/uL (4.1-10.2)
[2017-06-01 06:49] LABS: EOSINOPHIL (%) 1.1 % (0-5); EOSINOPHIL COUNT 0.1 K/uL (0-0.3); IMMATURE GRANULOCYTE (%) 0.5 % (0.0-0.7); INSTRUMENT ABS NEUTROPHIL CT 3.2 K/uL; LYMPHOCYTE COUNT 0.7 K/uL (1.0-2.8); MCHC 32.1 G/DL (30.0-36.0); MEAN PLAT.VOLUME 9.8 uM^3 (9.5-12.4); MONOCYTE (%) 10.2 % (3-12); MONOCYTE COUNT 0.5 K/uL (0-0.8); NEUTROPHIL (%) 71.6 % (45-76); NEUTROPHIL COUNT 3.2 K/uL (1.8-6.4); PLATELET COUNT 84 K/uL (156-360); RBC DIS.WIDTH-CV 13.2 % (11.8-14.6); RBC DIS.WIDTH-SD 46.9 % (39-53)
[2017-06-01 07:40] LABS: ALKALINE PHOSPHATASE 56 IU/L (3-129); ANION GAP 9 MEQ/L (2-14); CHLORIDE 110 MEQ/L (99-109); GFR ESTIMATE (CALCULATED) 58 mL/min/; GLUCOSE 79 mg/dL (70-99); POTASSIUM 3.8 MEQ/L (3.7-5.4); SAMPLE HEMOLYSIS CHECK 0; SAMPLE ICTERIC CHECK 0; SAMPLE LIPEMIA CHECK 0; SODIUM 145 MEQ/L (136-147); TOTAL BILIRUBIN 0.5 MG/DL (0.0-1.0); UREA NITROGEN (BUN) 29 mg/dL (9-23)
[2017-06-01 07:43] VITALS: BP 162/68
[2017-06-01 16:19] VITALS: BP 148/69
[2017-06-01 21:59] LABS: POINT-OF-CARE METER ID UU14188625
[2017-06-01 23:47] VITALS: BP 175/72
[2017-06-02 07:18] VITALS: BP 166/72
[2017-06-02 08:09] LABS: POINT-OF-CARE METER ID UU13113717; POINT-OF-CARE USER ID AHSSSJB31
[2017-06-02 12:15] LABS: POINT-OF-CARE METER ID UU14188625; POINT-OF-CARE USER ID AHSSSJB31
[2017-06-02 15:15] VITALS: BP 171/63
[2017-06-02 16:44] LABS: POINT-OF-CARE METER ID UU13113717
[2017-06-02 21:49] LABS: POINT-OF-CARE METER ID UU14188625
[2017-06-02 22:21] VITALS: BP 152/62
[2017-06-02 23:55] VITALS: BP 159/77
[2017-06-03 06:53] LABS: EOSINOPHIL (%) 3.3 % (0-5); EOSINOPHIL COUNT 0.1 K/uL (0-0.3); HEMATOCRIT 30.2 % (36.0-46.0); IMMATURE GRANULOCYTE (%) 0.4 % (0.0-0.7); INSTRUMENT ABS NEUTROPHIL CT 1.6 K/uL; LYMPHOCYTE COUNT 0.7 K/uL (1.0-2.8); MCH 30.2 PG (29.0-34.0); MCHC 31.5 G/DL (30.0-36.0); MCV 95.9 FL (83-99); MEAN PLAT.VOLUME 10.4 uM^3 (9.5-12.4); MONOCYTE (%) 11.2 % (3-12); MONOCYTE COUNT 0.3 K/uL (0-0.8); NEUTROPHIL (%) 57.6 % (45-76); NEUTROPHIL COUNT 1.6 K/uL (1.8-6.4); PLATELET COUNT 82 K/uL (156-360); RBC DIS.WIDTH-CV 13.2 % (11.8-14.6); RBC DIS.WIDTH-SD 46.3 % (39-53); RED BLOOD COUNT 3.15 M/uL (3.80-5.20); WHITE BLOOD COUNT 2.8 K/uL (4.1-10.2)
[2017-06-03 07:18] LABS: ALKALINE PHOSPHATASE 57 IU/L (3-129); ANION GAP 5 MEQ/L (2-14); CHLORIDE 112 MEQ/L (99-109); GFR ESTIMATE (CALCULATED) > 59 mL/min/; GLUCOSE 96 mg/dL (70-99); POTASSIUM 3.5 MEQ/L (3.7-5.4); SAMPLE HEMOLYSIS CHECK 0; SAMPLE ICTERIC CHECK 0; SAMPLE LIPEMIA CHECK 0; SODIUM 145 MEQ/L (136-147); TOTAL BILIRUBIN 0.4 MG/DL (0.0-1.0); UREA NITROGEN (BUN) 18 mg/dL (9-23)
[2017-06-03 08:25] VITALS: BP 160/64
[2017-06-04 00:04] VITALS: BP 171/70
[2017-06-04 23:29] VITALS: BP 189/95
[2017-06-06 00:07] VITALS: BP 177/88
[2017-06-06 08:00] VITALS: BP 196/91
[2017-06-06 14:47] VITALS: BP 152/88
== END 2017-06-06 15:43 | disposition hospice, home (50) | DRG 100 ==
LOC: EME → EDBD 22:11 → EME 22:11 → 5SOUTH 05-29 01:57 → EDOF 05-29 01:57 → ENRESERV 05-29 01:59 → 5SOUTH 05-29 03:32
PROVIDERS: Emergency Medicine; Hospitalist; Nurse Practitioner Adult Health
DX: G40.411 Other generalized epilepsy and epileptic syndromes, intractable, with status epilepticus (principal); D61.818 Other pancytopenia; G93.40 Encephalopathy, unspecified; J69.0 Pneumonitis due to inhalation of food and vomit; G93.89 Other specified disorders of brain; J98.11 Atelectasis; J44.1 Chronic obstructive pulmonary disease with (acute) exacerbation; I63.9 Cerebral infarction, unspecified; I27.20 Pulmonary hypertension, unspecified; J18.9 Pneumonia, unspecified organism; J44.0 Chronic obstructive pulmonary disease with (acute) lower respiratory infection; R62.7 Adult failure to thrive; Z51.5 Encounter for palliative care; I50.32 Chronic diastolic (congestive) heart failure; I11.0 Hypertensive heart disease with heart failure; I73.9 Peripheral vascular disease, unspecified; I65.29 Occlusion and stenosis of unspecified carotid artery; G43.909 Migraine, unspecified, not intractable, without status migrainosus; I25.10 Atherosclerotic heart disease of native coronary artery without angina pectoris; F32.9 Major depressive disorder, single episode, unspecified; D69.6 Thrombocytopenia, unspecified; D64.9 Anemia, unspecified; D72.819 Decreased white blood cell count, unspecified; S51.812A Laceration without foreign body of left forearm, initial encounter; F17.200 Nicotine dependence, unspecified, uncomplicated; J84.10 Pulmonary fibrosis, unspecified; E78.5 Hyperlipidemia, unspecified; K21.9 Gastro-esophageal reflux disease without esophagitis; R00.1 Bradycardia, unspecified; J96.21 Acute and chronic respiratory failure with hypoxia; I69.354 Hemiplegia and hemiparesis following cerebral infarction affecting left non-dominant side; Z96.653 Presence of artificial knee joint, bilateral; Z96.643 Presence of artificial hip joint, bilateral; Z80.3 Family history of malignant neoplasm of breast; I25.2 Old myocardial infarction; Z87.442 Personal history of urinary calculi; Z80.41 Family history of malignant neoplasm of ovary; Z68.21 Body mass index [BMI] 21.0-21.9, adult
CPT/HCPCS: 31720; 36600; 70450; 70551; 71010; 73630; 80048; 80053; 80061; 80164; 81003; 82140; 82550; 82553; 82803; 82948; 83036; 83605; 83690; 83880; 84484; 85025; 85027; 85610; 85730; 87040; 92523 GN; 92610 GN; 93005; 93880; 93925; 94010; 94667; 94668; 94760; 94799; 95819; 97530 GP; 99202; 99281; 99285; J1644; J1953; J2270; J2543; J7030; J7050

== ENCOUNTER 2017-06-06 14:22 | Inpatient (IN) | payer OTHER ==
[2017-06-07 00:10] VITALS: BP 133/73
[2017-06-07 07:44] VITALS: BP 119/68
[2017-06-07 11:40] VITALS: BP 119/60
== END 2017-06-07 16:16 | DRG 66 ==
LOC: 5SOUTH 14:22
DX: I63.9 Cerebral infarction, unspecified (principal); Z51.5 Encounter for palliative care; I25.10 Atherosclerotic heart disease of native coronary artery without angina pectoris; I25.2 Old myocardial infarction; J44.9 Chronic obstructive pulmonary disease, unspecified; R56.9 Unspecified convulsions; F17.200 Nicotine dependence, unspecified, uncomplicated; I73.9 Peripheral vascular disease, unspecified; Z66 Do not resuscitate; Z79.82 Long term (current) use of aspirin
CPT/HCPCS: 94799; J1953; J2270; J7050